=== PATIENT | male | born 1975 ===

== ENCOUNTER → 2018-10-27 | Outpatient (REF) | payer SELFPAY ==
[2018-10-28 12:57] LABS: Probe Check PASS; Sample Adequacy Control PASS; Specimen Processing Control PASS; Trichomonas Vag DNA by PCR POSITIVE (Negative)
[2018-10-30 09:29] LABS: Probe Check PASS; Sample Adequacy Control PASS; Specimen Processing Control PASS; Trichomonas Vag DNA by PCR Negative (Negative)
[2018-10-30 10:57] LABS: Probe Check PASS; Sample Adequacy Control PASS; Specimen Processing Control PASS; Trichomonas Vag DNA by PCR POSITIVE (Negative)
== END | disposition home or self-care (01) ==
LOC: LABSURVEY 11:46
PROVIDERS: Visit Provider Pathology Anatomic Pathology & Clinical Pathology
DX: Z00.00 Encounter for general adult medical examination without abnormal findings (principal)